=== PATIENT | male | born 1975 | race Caucasian/White ===

== ENCOUNTER 2021-05-17 02:14 | Emergency (ER) | payer MEDICAID ==
[~2021-05-17] VITALS: Ht 198.1 cm; Wt 133.8 kg
[2021-05-17 02:59] VITALS: BP 158/63
--- NOTE | 2021-05-17 03:28 | NUR ---
BIBS. TO ER CH1. AAOX4. NOT IN RESP DISTRESS. AMBULATORY. CAME IN FOR LOWER BACK PAIN FOR THE PAST 3-4 DAYS. PT STATES HE HIT HIS BACK AGAINTS THE STAIRS WHILE CLIMBING STAIRS. PT ALSO REPORTS THAT HE HAS MULTIPLE BUMPS ON THE R UPPER ARM WHICH PT THINK MIGHT BE ABSCESS. AWAITING MD FOR EVAL.
[2021-05-17] MEDS ORDERED: SULF1TAB48 PO (03:52)
[2021-05-17] MEDS ORDERED: CEPH500T PO (03:52)
[2021-05-17] MEDS ORDERED: CEPHALEXIN MONOHYDRATE 500 MG CAPSULE PO ONE ×2 (03:55→04:00)
[2021-05-17] MEDS ORDERED: SULFAMETH/TRIMETH 800/160 MG 1 UDTAB TABLET ONE (03:56)
--- NOTE | 2021-05-17 03:59 | NUR ---
Patient discharged to home in stable condition. Written and verbal after care instructions given. Patient verbalizes understanding of instruction. Pt ambulatory with a steady gait
[2021-05-17] MEDS ORDERED: SULFAMETH/TRIMETH 800/160 MG 1 UDTAB TABLET PO ONE (04:00)
== END 2021-05-17 03:59 | disposition home or self-care (01) ==
LOC: ER 02:14
DX: G89.29 Other chronic pain (principal); M54.50 Low back pain, unspecified; L02.413 Cutaneous abscess of right upper limb; F11.20 Opioid dependence, uncomplicated; F13.20 Sedative, hypnotic or anxiolytic dependence, uncomplicated; F17.210 Nicotine dependence, cigarettes, uncomplicated; Z79.899 Other long term (current) drug therapy; Z60.2 Problems related to living alone

== ENCOUNTER 2024-08-13 01:58 | Emergency (ER) | payer MEDICARE ==
[~2024-08-13] VITALS: Ht 188 cm; Wt 106.6 kg
[~2024-08-13 01:58] MED LIST: CEPH500T PO; SULF1TAB48 PO
[2024-08-13 02:34] VITALS: BP 151/86; TEMP 98.3
[2024-08-13 04:42] LABS: APPEARANCE,URINE SLIGHTLY CLOUDY (CLEAR); BILIRUBIN,URINE NEGATIVE (NEGATIVE); BLOOD, URINE 3+ Ery/uL (NEGATIVE); COLOR,URINE YELLOW (YELLOW); KETONES,URINE NEGATIVE (NEGATIVE); LEUKOCYTE ESTERASE ,URINE TRACE (NEGATIVE); NITRITE, URINE POSITIVE (NEGATIVE); PROTEIN,URINE 2+ mg/dl (NEGATIVE); UGLUCOSE NEGATIVE (NEGATIVE)
[2024-08-13 05:03] LABS: BARBITURATE, URINE NEGATIVE (NEGATIVE); BENZODIAZEPINE, URINE NEGATIVE (NEGATIVE); CANNABINOID, URINE NEGATIVE (NEGATIVE); COCCAINE, URINE NEGATIVE (NEGATIVE); OPIATE, URINE NEGATIVE (NEGATIVE); PHENCYCLIDINE SCREEN,URINE NEGATIVE (NEGATIVE)
[2024-08-13 05:08] LABS: ADD URINE CULTURE YES; AMPHETAMINE, URINE POSITIVE (NEGATIVE); BACTERIA,URINE Few /HPF (None Seen); RBC,URINE 21-50 /HPF (0-2); SQUAMOUS EPITHELIAL CELL,UR Rare /HPF (None Seen)
[2024-08-13] MEDS ORDERED: SULF1TAB48 PO (05:36)
[2024-08-13] MEDS ORDERED: CEPH500C2 PO (05:36)
[2024-08-13] MEDS ORDERED: SULFAMETH/TRIMETH 800/160 MG 1 UDTAB TABLET ONE (05:42)
[2024-08-13] MEDS: SULFAMETH/TRIMETH 800/160 MG 1 UDTAB TABLET PO ONE (05:44)
[2024-08-13 05:45] VITALS: O2SAT 98
== END 2024-08-13 05:45 | disposition home or self-care (01) ==
LOC: ER 01:58
DX: N30.91 Cystitis, unspecified with hematuria (principal); G89.29 Other chronic pain; F17.200 Nicotine dependence, unspecified, uncomplicated; L03.032 Cellulitis of left toe; Z60.2 Problems related to living alone
CPT/HCPCS: 81001; 87086-TC; 87186-TC